=== PATIENT | male | born 1995 | race Caucasian/White ===

== ENCOUNTER 2019-08-04 18:14 | Emergency (ER) | payer OTHER ==
--- NOTE | 2019-08-04 18:35 | ED ---
Allergic Reaction/Systemic - HPI Summary HPI Summary: Patient is a 24 y/o M presenting to the ED for a chief complaint of allergic reaction on 08/04/19. Patient states that he has a known allergy to nuts, and believes he was exposed to peanuts after rinsing out a peanut butter jar from his recycling bin. After the exposure to peanuts, he began to cough. On his way to [facility], he began to feel right-sided throat swelling and wheezing. Patient denies a rash. He took 3 doses of Benadryl, but did not use the EpiPen he has at home because the EpiPen is . PMHx is significant for asthma and GERD. He denies tobacco use. Allergies to medications are denied. - History of Current Complaint Chief Complaint: EDAllergicReaction Time Seen by Provider: 08/04/19 18:32 Hx Obtained From: Patient Onset/Duration: Sudden Onset, Still Present Timing: Constant Severity Initially: Mild Severity Currently: None Pain Intensity: 0 Pain Scale Used: 0-10 Numeric Character: Swelling - Throat Aggravating Factor(s): Other - Nuts Alleviating Factor(s): OTC Meds - Benadryl Associated Signs And Symptoms: Positive: Cough Wheezing, Other: - Positive right -sided throat swelling. Negative: Rash - Allergies/Home Medications Allergies/Adverse Reactions: Allergies Allergy/AdvReac Type Severity Reaction Status Date / Time peanut Allergy Anaphylatic Verified 08/04/19 18:18 Shock Home Medications: Home Medications Omeprazole 20 mg PO DAILY 08/04/19 [History Confirmed 08/04/19] PMH/Surg Hx/FS Hx/Imm Hx Previously Healthy: Yes Respiratory History: Reports: Hx Asthma GI History: Reports: Hx Gastroesophageal Reflux Disease Sensory History: Denies: Hx Legally Blind, Hx Deafness Opthamlomology History: Denies: Hx Legally Blind EENT History: Denies: Hx Deafness - Surgical History Surgical History: None Surgery Procedure, Year, and Place: None Infectious Disease History: No Infectious Disease History: Denies: Traveled Outside the [place] in Last 30 Days - Family History Known Family History: Negative: Diabetes, Renal Disease - Social History Occupation: Student Lives: Dormitory/Roommates Alcohol Use: None Hx Substance Use: No Substance Use Type: Reports: None Hx Tobacco Use: No Smoking Status (MU): Never Smoked Tobacco Review of Systems Positive: Other - Positive right-sided throat swelling Positive: Cough, Other - Positive wheezing Negative: Rash All Other Systems Reviewed And Are Negative: Yes Physical Exam - Summary Physical Exam Summary: Constitutional: Well-developed, Well-nourished, Alert. (-) Distressed Skin: Warm, Dry HENT: Normocephalic; Atraumatic. Oropharynx is mildly swollen, no angioedema of the lips or tongue Eyes: Conjunctiva normal Neck: Musculoskeletal ROM normal neck. (-) JVD, (-) Stridor, (-) Tracheal deviation Cardio: Rhythm regular, rate normal, Heart sounds normal; Intact distal pulses; The pedal pulses are 2+ and symmetric. Radial pulses are 2+ and symmetric. (-) Murmur Pulmonary/Chest wall: Effort normal. (-) Respiratory distress, (-) Wheezes, (-) Rales Abd: Soft, (-) tenderness, (-) Distension, (-) Guarding, (-) Rebound Musculoskeletal: (-) Edema Lymph: (-) Cervical adenopathy Neuro: Alert, Oriented x3 Psych: Mood and affect Normal Triage Information Reviewed: Yes Vital Signs On Initial Exam: Initial Vitals Temp Pulse Resp BP Pulse Ox 98.8 F 68 18 146/87 100 08/04/19 18:16 08/04/19 18:16 08/04/19 18:16 08/04/19 18:16 08/04/19 18:16 Vital Signs Reviewed: Yes Procedures - Sedation Patient Received Moderate/Deep Sedation with Procedure: No Diagnostics - Vital Signs Vital Signs Temp Pulse Resp BP Pulse Ox 08/04/19 18:16 98.8 F 68 18 146/87 100 - Laboratory Lab Statement: Any lab studies that have been ordered have been reviewed, and results considered in the medical decision making process. Allergic Reaction Course/Dx - Course Course Of Treatment: Patient is a 24 y/o M presenting to the ED for a chief complaint of allergic reaction on 08/04/19. Patient states that he has a known allergy to nuts, and believes he was exposed to peanuts after rinsing out a peanut butter jar from his recycling bin. After the exposure to peanuts, he began to cough. On his way to [facility], he began to feel right-sided throat swelling and wheezing. Patient denies a rash. He took 3 doses of Benadryl, but did not use the EpiPen he has at home because the EpiPen is . PMHx is significant for asthma and GERD. He denies tobacco use. Allergies to medications are denied. On exam, oropharynx is mildly swollen, no angioedema of the lips or tongue, no wheezing, no respiratory distress. In the ED course, patient was given Pepcid 40 mg IV SLOW, Solu-Medrol 125 mg IV, and IV fluids. Patient will be discharged with a diagnosis of allergic reaction and a prescription for prednisone and an EpiPen. Follow up with [facility] in 1-3 days. - Diagnoses Provider Diagnoses: Allergic reaction Discharge ED - Sign-Out/Discharge Documenting (check all that apply): Patient Departure - Discharge - Discharge Plan Condition: Stable Disposition: HOME Prescriptions: EPINEPHrine [Epipen 2-Hussein] 0.3 mg IM ONCE PRN #1 inj PRN Reason: Allergy Symptoms predniSONE [Prednisone 20 MG TAB] 40 mg PO DAILY 4 Days #8 tablet Patient Education Materials: General Allergic Reaction (ED) Referrals: [facility] [Outside] [facility] - Lukasz GONZALEZ [[employer], APPLICATION, OTHER] - Additional Instructions: RETURN TO THE EMERGENCY DEPARTMENT FOR CHANGING OR WORSENING SYMPTOMS. Follow up with [facility] in 1-3 days. - Billing Disposition and Condition Condition: STABLE Disposition: Home - Attestation Statements Document Initiated by Rosa Isela: Yes Documenting Scribe: Keke Lund Provider For Whom Scribe is Documenting (Include Credential): Jose Cruz Mccloud DO Scribe Attestation: Keke Zacarias scribed for Jose Cruz Mccloud DO on 08/04/19 at 2043. Scribe Documentation Reviewed: Yes Provider Attestation: The documentation as recorded by the Keke ibarra accurately reflects the service I personally performed and the decisions made by , Jose Cruz Mccloud DO Status of Scribe Document: Viewed
[2019-08-04] MEDS ORDERED: methylPREDNISolone 125 MG* 2 ML VIAL IV ONE (18:43)
[2019-08-04] MEDS ORDERED: Famotidine IV* 10 MG/ML 2 ML (20 mg) IV SLOW PU ONE (18:43)
[2019-08-04] MEDS ORDERED: NS 0.9% 1000 ML** 1,000 ML IV ONE (18:43)
[2019-08-04 20:30] VITALS: BP 128/68
== END 2019-08-04 20:15 | disposition home or self-care (01) ==
LOC: ED 18:14
DX: T78.40XA Allergy, unspecified, initial encounter (principal); X58.XXXA Exposure to other specified factors, initial encounter; Y92.009 Unspecified place in unspecified non-institutional (private) residence as the place of occurrence of the external cause; J45.909 Unspecified asthma, uncomplicated; K21.9 Gastro-esophageal reflux disease without esophagitis; Z79.899 Other long term (current) drug therapy
CPT/HCPCS: 96361; 96374; 99283; J2930